=== PATIENT | male | born 1985 | race Two or more races ===

== ENCOUNTER 2024-12-06 13:51 | Outpatient (AMB) | payer OTHER, SELFPAY ==
--- NOTE | 2024-12-06 13:51 | MHC.AMNUTRGE ---
VS Expanded 12/17/24 10:40 Height 5 ft 7 in Weight 275 lb BMI 43.1 Intake Visit Reasons: hyperglycemia Nutrition Presentation Details: Pt presents for MNT for hyperglycemia Pt reports interest in making dietary modifications Currently not monitoring BG- reports not ready at this time,reports interest in making diet modifications and no medications food frequency fruits: 0-1/d ve-3/wk dairy: 3+ fish 0-1/wk starches>30/d beverages: water, working on choosing lower sugars physical activity: ADL etoh/smoking- denies Per referral record Tg at 1134 (10/05), hdl 23, ldl 111, chol 237, gluc 279 mg/dl, RHV-[id number]-Qg.Jeor Equation Height: 5 ft 7 in Weight: 275 lb Resting Metabolic Rate: 2117.96 Calculated Activity Level: Sedentary Calories Needed to Maintain Weight: 2541.55 Diagnosis Nutrition problem #1: food nutri know defi As related to (etiology) #1: diagnosis (new dx hyperglycemia/elevated tg) As evidenced by (sign/symptom) #1: abnormal serum lipids and knowledge deficit of diet Assessment & Plan Assessment & Plan (1) Hyperglycemia: Code(s): R73.9 - Hyperglycemia, unspecified Category: Medical Plan: current wt: 125 kg ( 12/06 ) est kcal needs as per MSJ: 2687-8363 est protein needs as per 1 g/kg BW: 120-130 est fluid needs as per 30 ml/kg BW: 3800 Rec sodium < 2300 mg/d Recommended fiber > 12 g /day and gradually increase up to 25-28 g /day or as tolerated Nutrition topics discussed : Reviewed (R), Pt verbalized understanding (V) , not applicable (N/A) R, : Healthy Plate Method Concept: R, : Carbohydrates: food sources of carbohydrates, relationship of carbohydrates to blood glucose, fatty liver GI health. Recommended total amount of carbohydrates per meals and snack. Differences between simple carbohydrates and complex carbohydrates R, V, N/A: Lean protein foods including vegan , vegetarian sources of protein. Benefits of protein (including but not limited to healing, nutritional value , benefits in weight loss, glucose control R, V, N/A: Fats : Source of fats, benefits of fats. Difference between saturated and unsaturated fats. Saturated fats and its contribution to inflammation R, V, N/A: Fiber: food sources and role of fiber in the diet (including but not limited to its role as a prebiotic, benefits in constipation, role in IBS , role in glucose control and cholesterol level) R, V, N/A: Hydration: role of hydration and prevention of dehydration or over hydration. Foods and water content. R, V, N/A: Vitamins and Minerals in foods and supplements R, V, N/A: Interpreting food labels, including serving size, macronutrients, vitamins, minerals, allergens, ingredient list , % daily value Patient Instructions: Choose low sugar beverages - see list of options Practice mindful eating , reducing sugars Reduce total carb at dinner to less than 100 g following healthy plate method Coding Level of Care Code Nutr Indiv Intake (83208) Diagnoses Hyperglycemia R73.9 Time Spent (min) 30
[2024-12-17 10:40] VITALS: BMI 43.1
[2024-12-17 10:44] VITALS: BMI 43.1
== END 2024-12-06 14:35 | disposition home or self-care (01) ==
LOC: HO.ENCR 13:52
PROVIDERS: PCP Internal Medicine; Visit Provider Dietitian, Registered
DX: R73.9 Hyperglycemia, unspecified (principal)

== ENCOUNTER → 2024-12-06 13:51 | Outpatient (BNVA) | payer OTHER, SELFPAY | PROVIDERS: PCP Internal Medicine; Visit Provider Dietitian, Registered | DX: R73.9 Hyperglycemia, unspecified (principal) | CPT/HCPCS: 97802 ==